=== PATIENT | male | born 1955 | race African-American/Black ===

== ENCOUNTER 2019-03-07 09:18 | Day surgery (SDC) | payer BC, OTHER ==
[2019-03-06 10:19] VITALS: BMI 29.0
[~2019-03-07 09:18] MED LIST: ceFAZolin SODIUM 1 GM VIAL IVPB ONE
[2019-03-07] MEDS ORDERED: DESFLURANE GAS 240 ML BOTTLE IH ONE (10:35)
[2019-03-07] MEDS ORDERED: PROPOFOL 20 ML ONE ×2 (10:58)
[2019-03-07] MEDS ORDERED: LIDOCAINE HCL/PF 2% SDV 5ML VIAL ONE (10:58)
[2019-03-07] MEDS ORDERED: SUCCINYLCHOLINE CHLORIDE 200 MG/10 ML SYRINGE ONE (11:00)
[2019-03-07] MEDS ORDERED: ceFAZolin SODIUM 1 GM VIAL IVPB ONE (11:12)
[2019-03-07] MEDS ORDERED: MIDAZOLAM HCL 2 MG/2 ML SINGLE DOSE VIAL ONE (11:16)
[2019-03-07] MEDS ORDERED: FUROSEMIDE 40 MG/4 ML INJECTABLE VIAL ONE (11:57)
[2019-03-07] MEDS ORDERED: oxyCODONE HCL 5 MG TABLET PO PRN ×2 (12:07→12:17)
--- NOTE | 2019-03-07 12:07 | OP ---
Operative Note - Note: Operative Date: 03/07/19 Pre-Operative Diagnosis: BPH Operation: Greenlight laser of prostate Findings: markedly enlarged prostate Post-Operative Diagnosis: Same as Pre-op Surgeon: Jeff Pedroza MD. Anesthesia: General, MAC Estimated Blood Loss (mls): 40 Drains & Tubes with Location: [address] Operative Report Dictated: Yes
[2019-03-07] MEDS ORDERED: ELECTROLYTE-148 SOLN 1,000 ML IV SCH (12:15)
[2019-03-07] MEDS ORDERED: ONDANSETRON 4 MG/2 ML VIAL IVPUSH PRN (12:17)
[2019-03-07] MEDS ORDERED: PROMETHAZINE HCL 25 MG/1 ML VIAL IVPB PRN (12:17)
[2019-03-07] MEDS ORDERED: oxyCODONE HCL 5 MG TABLET PO ONE (14:05)
[2019-03-07] MEDS ORDERED: oxyCODONE HCL 5 MG TABLET ONE (14:05)
[2019-03-07 14:59] VITALS: TEMP 97.9
[2019-03-07 17:19] VITALS: BP 135/88; PULSE 71
--- NOTE | 2019-03-07 20:49 | OP ---
DATE OF OPERATION: 03/07/2019 PREOPERATIVE DIAGNOSIS: Benign prostatic hypertrophy. POSTOPERATIVE DIAGNOSIS: Benign prostatic hypertrophy. PROCEDURE: GreenLight laser of prostate. HISTORY: This is a very pleasant, 63-year-old gentleman with a long history of BPH. Patient also was treated with radiation for prostate cancer. Preoperatively, the patient was instructed that he has a high risk of incontinence due to his history of radiation. However, we would take special precaution to maintain the distal approximately 1 cm of prostatic tissue. Patient has markedly enlarged prostate with occlusive lateral lobes, approximately 6.5 cm in length and 5 cm in height. All options were discussed. Risks and benefits were discussed clearly with patient. Informed consent was obtained. BRIEF OPERATIVE NOTE: Patient brought to the operating room, placed in supine position. General anesthesia was administered. Patient was transferred to dorsal lithotomy position, prepped and draped in standard sterile fashion. Intravenous antibiotics were given. At this time, a 23-Salvadorean cystoscope sheath was placed in position. The prostate was approximately 6.5 cm in length. The orifices were maintained away from the area of dissection throughout the case. The bladder was otherwise unremarkable other than 3+ trabeculation. At this time, using the holmium laser at a setting from 80 to 180 pino, the prostate was vaporized from the 10 to 6 and then 2 to 6 o'clock position. There was a high median bar which was taken down at the 5 and 7 o'clock positions. There was no evidence of active bleeding. As stated previously, the distal tissue was maintained intact. However, due to the grossly enlarged prostate, a fair amount of tissue was addressed. There was no evidence of significant bleeding with the irrigation turned off. A 22-Salvadorean catheter was then placed to straight drainage, draining blood-tinged urine. Patient brought to recovery room in stable and satisfactory condition. Mahsa [id number]
== END 2019-03-07 15:35 | disposition home or self-care (01) ==
LOC: JASU-SURG 09:18
PROVIDERS: ATTEND Urology
PROC: 0VT08ZZ Resection of Prostate, Via Natural or Artificial Opening Endoscopic (ICD-10-PCS; principal; 2019-03-07 11:00)
DX: N40.0 Benign prostatic hyperplasia without lower urinary tract symptoms (principal); Z85.46 Personal history of malignant neoplasm of prostate
CPT/HCPCS: 94760